=== PATIENT | female | born 1990 | race Caucasian/White ===

== ENCOUNTER 2018-03-27 06:18 | Inpatient (IN) | payer OTHER ==
[2018-03-27] MEDS ORDERED: CARBOPROST 250 MCG INJ IM (06:30)
[2018-03-27] MEDS ORDERED: METHYLERGONOVINE 0.2 MG INJ IM (06:30)
[2018-03-27] MEDS ORDERED: BUTORPHANOL 2 MG INJ IV (06:30)
[2018-03-27] MEDS ORDERED: OXYTOCIN 30 UNITS/LR 500 ML IV (06:30)
[2018-03-27] MEDS ORDERED: LIDOCAINE 1% (MPF) 30 ML INJ INJ (06:30)
[2018-03-27] MEDS ORDERED: MISOPROSTOL 200 MCG TAB PR (06:30)
[2018-03-27] MEDS ORDERED: IBUPROFEN 600 MG TAB PO (06:30)
[2018-03-27 07:00] LABS: ADD MAN DIFF? NO
[2018-03-27] MEDS: LACTATED RINGER'S 1,000 ML IV ×4 (07:04→23:46)
[2018-03-27 07:07] LABS: WHITE BLOOD COUNT 7.5 10^3/ul (4.8-10.8)
[2018-03-27 07:07] LABS: BASOPHILS % 0.5 % (0.0-2.0); EOSINOPHILS # 0.1 10^3/ul (0.0-0.5); EOSINOPHILS % 0.7 % (0.0-7.0); HEMATOCRIT 35.5 % (37.0-47.0); HEMOGLOBIN 11.2 g/dl (12.0-16.0); LYMPHOCYTES # 2.5 10^3/ul (0.8-2.9); LYMPHOCYTES % 32.9 % (15.0-51.0); MEAN CORPUSCULAR HEMOGLOBIN 27.5 pg (29.0-33.0); MEAN CORPUSCULAR HGB CONC 31.5 g/dl (32.0-37.0); MEAN PLATELET VOLUME 11.9 fl (7.4-10.4); MONOCYTE # 0.7 10^3/ul (0.3-0.9); MONOCYTES % 9.4 % (0.0-11.0); NEUTROPHIL # 4.2 10^3/ul (1.6-7.5); NEUTROPHILS % 55.7 % (39.0-77.0); PLATELET COUNT 233 10^3/UL (140-415); RED BLOOD COUNT 4.08 10^6/ul (4.20-5.40); RED CELL DISTRIBUTION WIDTH 13.1 % (11.5-14.5)
[2018-03-27 07:27] LABS: INR 0.86; PARTIAL THROMBOPLASTIN TIME 26.9 Sec (25.0-35.0); PROTIME 11.8 Sec (11.9-14.9); PT RATIO 0.9
[2018-03-27 07:54] LABS: HEPATITIS B SURFACE ANTIGEN NEGATIVE (NEGATIVE)
[2018-03-27] MEDS ORDERED: FENTAnyl 2MCG/ML-ROPIV 0.2% 100 ML (12:25)
[2018-03-27] MEDS ORDERED: ONDANSETRON 4 MG INJ IV (13:30)
[2018-03-27] MEDS ORDERED: NALOXONE (0.4 MG/ML) INJ IV (13:30)
[2018-03-27] MEDS ORDERED: EPHEDrine SULFATE 50 MG/5 ML SYG IV (13:30)
[2018-03-27] MEDS ORDERED: DIPHENHYDRAMINE 50 MG INJ IV (13:30)
[2018-03-27] MEDS: FENTAnyl 2MCG/ML-ROPIV 0.2% 100 ML BAG EPI ×2 (14:07→23:48)
[2018-03-27] MEDS: OXYTOCIN 30 UNITS/LR 500 ML IV (14:09)
[2018-03-27 17:05] LABS: RAPID PLASMA REAGIN NONREACTIVE (NR)
[2018-03-28] MEDS: LACTATED RINGER'S 1,000 ML IV ×6 (00:02→21:27)
[2018-03-28] MEDS: FENTAnyl 2MCG/ML-ROPIV 0.2% 100 ML BAG EPI ×2 (10:15→19:58)
[2018-03-29] MEDS ORDERED: CEFAZOLIN 2 GM/50 ML (PMX) 50 ML IV (04:00)
[2018-03-29] MEDS: LACTATED RINGER'S 1,000 ML IV (04:36)
[2018-03-29] MEDS: FENTAnyl 2MCG/ML-ROPIV 0.2% 100 ML BAG EPI (04:43)
[2018-03-29] MEDS ORDERED: LIDOCAINE 1.5%/EPI MPF (SDV) 30 ML VIAL (07:43)
[2018-03-29] MEDS ORDERED: FENTAnyl 50 MCG/ML VIAL (07:43)
[2018-03-29] MEDS ORDERED: SODIUM BICARBONATE (IV ADD) 50 ML (07:43)
[2018-03-29] MEDS ORDERED: DEXAMETHASONE 4 MG/ML 1 ML INJ (08:04)
[2018-03-29] MEDS ORDERED: FAMOTIDINE 20 MG INJ (08:04)
[2018-03-29] MEDS ORDERED: ONDANSETRON 4 MG INJ (08:04)
[2018-03-29] MEDS ORDERED: ZOLPIDEM 5 MG TAB PO (08:30)
[2018-03-29] MEDS ORDERED: ONDANSETRON 4 MG INJ IV (08:30)
[2018-03-29] MEDS ORDERED: DIPHENHYDRAMINE 50 MG INJ IV (08:30)
[2018-03-29] MEDS ORDERED: HYDROmorphONE 0.5 MG/0.5 ML SYG IV ×2 (08:30)
[2018-03-29] MEDS ORDERED: NALOXONE (0.4 MG/ML) INJ IV (08:30)
[2018-03-29] MEDS ORDERED: morphine SULFATE/PF (10 MG/10 ML) INJ (08:31)
[2018-03-29] MEDS: CEFAZOLIN 2 GM/50 ML (PMX) 50 ML IVPB ×2 (09:00→18:25)
[2018-03-29] MEDS ORDERED: MISOPROSTOL 200 MCG TAB PR (09:00)
[2018-03-29] MEDS ORDERED: CARBOPROST 250 MCG INJ IM (09:00)
[2018-03-29] MEDS ORDERED: OXYTOCIN 30 UNITS/LR 500 ML IV (09:00)
[2018-03-29] MEDS: METHYLERGONOVINE 0.2 MG INJ IM (09:04)
[2018-03-29] MEDS: OXYTOCIN 30 UNITS/LR 500 ML IV ×4 (09:05→15:39)
[2018-03-29] MEDS: KETOROLAC 30 MG INJ IV ×2 (10:50→23:50)
[2018-03-29] MEDS: SENNA/DOCUSATE NA (8.6MG/50MG) TAB PO ×2 (12:55→21:38)
[2018-03-29] MEDS: MINERAL OIL LIGHT 10 ML VIAL TOP ×2 (13:50)
[2018-03-30] MEDS: CEFAZOLIN 2 GM/50 ML (PMX) 50 ML IVPB ×4 (02:20→10:00)
[2018-03-30] MEDS: LACTATED RINGER'S 1,000 ML IV (02:20)
[2018-03-30] MEDS: SENNA/DOCUSATE NA (8.6MG/50MG) TAB PO ×2 (09:20→21:22)
[2018-03-30] MEDS: OXYCODONE/ACETAMINOPHEN (5/325) TAB PO ×3 (09:27→21:27)
[2018-03-30 11:11] LABS: ADD MAN DIFF? NO
[2018-03-30 11:12] LABS: WHITE BLOOD COUNT 8.1 10^3/ul (4.8-10.8)
[2018-03-30 11:12] LABS: BASOPHILS % 0.2 % (0.0-2.0); EOSINOPHILS % 0.4 % (0.0-7.0); HEMATOCRIT 31.1 % (37.0-47.0); HEMOGLOBIN 9.9 g/dl (12.0-16.0); LYMPHOCYTES # 1.7 10^3/ul (0.8-2.9); LYMPHOCYTES % 20.7 % (15.0-51.0); MEAN CORPUSCULAR HEMOGLOBIN 27.7 pg (29.0-33.0); MEAN CORPUSCULAR HGB CONC 31.8 g/dl (32.0-37.0); MEAN CORPUSCULAR VOLUME 86.9 fl (82.0-101.0); MEAN PLATELET VOLUME 11.9 fl (7.4-10.4); MONOCYTE # 0.8 10^3/ul (0.3-0.9); MONOCYTES % 9.6 % (0.0-11.0); NEUTROPHIL # 5.5 10^3/ul (1.6-7.5); NEUTROPHILS % 67.9 % (39.0-77.0); PLATELET COUNT 228 10^3/UL (140-415); RED BLOOD COUNT 3.58 10^6/ul (4.20-5.40); RED CELL DISTRIBUTION WIDTH 13.3 % (11.5-14.5)
[2018-03-30 11:45] LABS: RHOGAM PROFILE 1 1
[2018-03-30] MEDS: IBUPROFEN 600 MG TAB PO ×3 (12:18→23:50)
[2018-03-30] MEDS: FERROUS SULFATE (EC) 325 MG TAB PO (21:22)
[2018-03-31] MEDS: OXYCODONE/ACETAMINOPHEN (5/325) TAB PO ×3 (02:59→21:55)
[2018-03-31] MEDS: IBUPROFEN 600 MG TAB PO ×3 (06:00→18:19)
[2018-03-31] MEDS: SENNA/DOCUSATE NA (8.6MG/50MG) TAB PO ×2 (09:04→20:44)
[2018-03-31] MEDS: FERROUS SULFATE (EC) 325 MG TAB PO ×2 (09:04→20:44)
[2018-04-01] MEDS: IBUPROFEN 600 MG TAB PO ×3 (00:12→11:52)
[2018-04-01] MEDS: OXYCODONE/ACETAMINOPHEN (5/325) TAB PO ×2 (04:04→08:40)
[2018-04-01] MEDS: SENNA/DOCUSATE NA (8.6MG/50MG) TAB PO (08:40)
[2018-04-01] MEDS: FERROUS SULFATE (EC) 325 MG TAB PO (08:40)
== END 2018-04-01 12:22 | disposition home or self-care (01) | DRG 766 ==
LOC: L-D 06:18 → PP1 03-29 12:00
PROVIDERS: Obstetrics & Gynecology
PROC: 10D00Z1 Extraction of Products of Conception, Low, Open Approach (ICD-10-PCS; principal; 2018-03-29 07:30)
PROC: 3E033VJ Introduction of Other Hormone into Peripheral Vein, Percutaneous Approach (ICD-10-PCS; 2018-03-29 07:30)
DX: O48.0 Post-term pregnancy (principal); Z3A.40 40 weeks gestation of pregnancy; O36.63X0 Maternal care for excessive fetal growth, third trimester, not applicable or unspecified; Z37.0 Single live birth
CPT/HCPCS: 62319; 76815; 85025; 85610; 85730; 86592; 86850; 86885; 86900; 86901; 87340; 99464